=== PATIENT | female | born 1950 | race Caucasian/White ===

== ENCOUNTER → 2016-12-10 | Outpatient (CLI) | payer MEDICARE, OTHER ==
[~2016-12-10] MED LIST: AMIO200T PO; AMIO200T42 PO; ASPI-650 PO; CYAN50TA; FLUT16SP2 INH; FOLI-17 PO; FURO-92 PO; FURO40TA6 PO; LOSA25TA5 PO; LOSA50TA2 PO; LOSA50TA6 PO; MAGN30TA3; MAGN500C PO; METO-93 PO; METO25TA35 PO; METO25TA91 PO; NIAC50TA4; POTA10TA11 PO; POTA20TA14 PO; RIVA20TA PO; SPIR25TA3 PO; VALS40TA2 PO; VITA400C40 PO
== END | disposition home or self-care (01) ==
LOC: CFH 14:22
PROVIDERS: ATTEND Internal Medicine Cardiovascular Disease
DX: I08.1 Rheumatic disorders of both mitral and tricuspid valves (principal); I37.1 Nonrheumatic pulmonary valve insufficiency; I51.7 Cardiomegaly; I10 Essential (primary) hypertension; I48.91 Unspecified atrial fibrillation
CPT/HCPCS: 93306

== ENCOUNTER → 2017-02-18 | Outpatient (CLI) | payer MEDICARE, OTHER ==
[~2017-02-18] MED LIST changes: -VITA400C40 PO; +VITA400C43 PO
== END | disposition home or self-care (01) ==
LOC: CFH 14:41
PROVIDERS: ATTEND Internal Medicine Cardiovascular Disease
DX: M47.894 Other spondylosis, thoracic region (principal); I48.0 Paroxysmal atrial fibrillation; Z79.899 Other long term (current) drug therapy
CPT/HCPCS: 71020

== ENCOUNTER 2018-05-27 06:01 | Emergency (ER) | payer MEDICARE, OTHER ==
[~2018-05-27] VITALS: Ht 177.8 cm; Wt 102.6 kg
[~2018-05-27 06:01] MED LIST changes: +AMIO200T7 PO; +FURO-93 PO; -LOSA25TA5 PO; +LOSA25TA6 PO; -LOSA50TA6 PO; +LOSA50TA7 PO; -MAGN500C PO; +MAGN500C9 PO; -SPIR25TA3 PO; +SPIR25TA5 PO
[2018-05-27] MEDS ORDERED: LORA10TA72 PO (06:28)
[2018-05-27] MEDS ORDERED: ACET325T14 PO (06:28)
[2018-05-27] MEDS ORDERED: AMIO200T42 PO (06:28)
[2018-05-27] MEDS ORDERED: METO25TA2 PO (06:28)
[2018-05-27] MEDS ORDERED: VITA400C43 PO (06:28)
[2018-05-27] MEDS ORDERED: FURO40TA6 PO (06:28)
[2018-05-27] MEDS ORDERED: SODIUM CHLORIDE FLUSH 10ML SYR IVF ONE (06:30)
[2018-05-27 06:43] LABS: BASOPHILS # (AUTO) 0.03 x10^3/uL (0-0.1); BASOPHILS % (AUTO) 0 % (0-1); EOSINOPHILS # (AUTO) 0.11 x10^3/uL (0-0.4); EOSINOPHILS % (AUTO) 1 % (1-7); LYMPHOCYTES # (AUTO) 2.76 x10^3/uL (1-3.4); LYMPHOCYTES % (AUTO) 34 % (22-44); MD NO; MEAN CORPUSCULAR HEMOGLOBIN 30.5 pg (27.0-34.8); MEAN CORPUSCULAR VOLUME 89.7 fL (80-100); MEAN PLATELET VOLUME 10.1 fL (7.4-10.4); MONOCYTES # (AUTO) 0.61 x10^3/uL (0.2-0.8); MONOCYTES % (AUTO) 8 % (2-9); NEUTROPHILS # (AUTO) 4.52 x10^3/uL (1.8-6.8); NEUTROPHILS % (AUTO) 56 % (42-75); PLATELET COUNT 207 x10^3/uL (130-400); RED CELL DISTRIBUTION WIDTH 12.6 % (9.6-15.2)
[2018-05-27 06:56] LABS: ALANINE AMINOTRANSFERASE 47 U/L (12-78); ALBUMIN 3.6 g/dL (3.4-5.0); ANION GAP 9 mmol/L (5-15); CALCIUM 8.8 mg/dL (8.5-10.1); CHLORIDE 110 mmol/L (98-107); CREATININE 0.85 mg/dL (0.55-1.02)
[2018-05-27 06:58] LABS: ALKALINE PHOSPHATASE 133 U/L (45-117); BILIRUBIN,TOTAL 0.3 mg/dL (0.2-1.0); TOTAL PROTEIN 7.4 g/dL (6.4-8.2)
[2018-05-27] MEDS ORDERED: PROPOFOL 10 MG/ML, 20ML IVP ONE (07:30)
[2018-05-27] MEDS ORDERED: PROPOFOL 10 MG/ML, 20ML ONE (07:34)
[2018-05-27 08:38] VITALS: BP 115/64
== END 2018-05-27 08:49 | disposition home or self-care (01) ==
LOC: ED 08:35
DX: I48.0 Paroxysmal atrial fibrillation (principal); I11.0 Hypertensive heart disease with heart failure; I50.9 Heart failure, unspecified; E78.5 Hyperlipidemia, unspecified; I25.2 Old myocardial infarction
CPT/HCPCS: 36415; 71045; 80053; 85025; 92960; 93005; 99291

== ENCOUNTER 2018-06-03 05:35 | Emergency (ER) | payer MEDICARE, OTHER ==
[~2018-06-03] VITALS: Ht 177.8 cm; Wt 102.6 kg
[~2018-06-03 05:35] MED LIST changes: +ACET325T14 PO; +LORA10TA72 PO; +METO25TA2 PO
[2018-06-03] MEDS ORDERED: DILTIAZEM 5 MG/ML, 5ML ONE (06:10)
[2018-06-03] MEDS ORDERED: ASPIRIN 81 MG TABLET CHEW PO ONE (06:30)
[2018-06-03] MEDS ORDERED: DILTIAZEM 5 MG/ML, 5ML IVPush ONE ×2 (06:30→07:00)
[2018-06-03] MEDS ORDERED: SODIUM CHLORIDE FLUSH 10ML SYR IVF ONE (06:30)
[2018-06-03 06:59] LABS: ALBUMIN 3.7 g/dL (3.4-5.0); ANION GAP 6 mmol/L (5-15); CHLORIDE 110 mmol/L (98-107)
[2018-06-03 07:04] LABS: CREATININE 0.99 mg/dL (0.55-1.02); TROPONIN I < 0.015 ng/mL (0.000-0.045)
[2018-06-03] MEDS ORDERED: PROPOFOL 10 MG/ML, 20ML IVPush ONE (07:30)
[2018-06-03] MEDS ORDERED: PROPOFOL 10 MG/ML, 20ML ONE (07:41)
[2018-06-03 08:53] LABS: BASOPHILS # (AUTO) 0.02 x10^3/uL (0-0.1); BASOPHILS % (AUTO) 0 % (0-1); EOSINOPHILS # (AUTO) 0.08 x10^3/uL (0-0.4); EOSINOPHILS % (AUTO) 1 % (1-7); LYMPHOCYTES # (AUTO) 2.51 x10^3/uL (1-3.4); LYMPHOCYTES % (AUTO) 29 % (22-44); MD NO; MEAN CORPUSCULAR HEMOGLOBIN 29.6 pg (27.0-34.8); MEAN CORPUSCULAR HGB CONC 32.8 g/dL (32.4-35.8); MEAN CORPUSCULAR VOLUME 90.3 fL (80-100); MEAN PLATELET VOLUME 10.9 fL (7.4-10.4); MONOCYTES # (AUTO) 0.65 x10^3/uL (0.2-0.8); MONOCYTES % (AUTO) 8 % (2-9); NEUTROPHILS # (AUTO) 5.31 x10^3/uL (1.8-6.8); NEUTROPHILS % (AUTO) 62 % (42-75); PLATELET COUNT 236 x10^3/uL (130-400); RED BLOOD COUNT 4.84 x10^6/uL (3.82-5.3); RED CELL DISTRIBUTION WIDTH 12.7 % (9.6-15.2)
[2018-06-03 09:49] VITALS: BP 109/62
== END 2018-06-03 09:53 | disposition home or self-care (01) ==
LOC: ED 05:55
DX: I48.2 Chronic atrial fibrillation (principal); E78.5 Hyperlipidemia, unspecified; I11.0 Hypertensive heart disease with heart failure; I50.9 Heart failure, unspecified; I25.2 Old myocardial infarction
CPT/HCPCS: 36415; 71045; 80048; 82040; 83735; 83880; 84484; 85025; 93005; 96374; 99291

== ENCOUNTER → 2018-07-27 | Outpatient (CLI) | payer MEDICARE, OTHER ==
[~2018-07-27] MED LIST changes: +LOSA25TA25 PO; -LOSA25TA6 PO; +MAGN400T7 PO; +OMNIPAQUE 350 MG/ML, 150 ML BOTTLE ONE
== END | disposition home or self-care (01) ==
LOC: CFH 12:41
PROVIDERS: ATTEND Internal Medicine Cardiovascular Disease
DX: J98.11 Atelectasis (principal); I48.0 Paroxysmal atrial fibrillation
CPT/HCPCS: 71046; 75572; Q9967

== ENCOUNTER → 2018-07-27 | Outpatient (CLI) | payer MEDICARE, OTHER ==
[~2018-07-27] MED LIST changes: +FENTANYL PF 250 MCG/5ML ONE; +MIDAZOLAM 1 MG/ML, 2ML ONE; +MULT-6 PO; -OMNIPAQUE 350 MG/ML, 150 ML BOTTLE ONE
[2018-07-27 14:50] LABS: BASOPHILS # (AUTO) 0.02 x10^3/uL (0-0.1); BASOPHILS % (AUTO) 0 % (0-1); EOSINOPHILS # (AUTO) 0.07 x10^3/uL (0-0.4); EOSINOPHILS % (AUTO) 1 % (1-7); LYMPHOCYTES # (AUTO) 1.79 x10^3/uL (1-3.4); LYMPHOCYTES % (AUTO) 25 % (22-44); MD NO; MEAN CORPUSCULAR HEMOGLOBIN 29.5 pg (27.0-34.8); MEAN CORPUSCULAR HGB CONC 32.3 g/dL (32.4-35.8); MEAN CORPUSCULAR VOLUME 91.5 fL (80-100); MEAN PLATELET VOLUME 9.8 fL (7.4-10.4); MONOCYTES # (AUTO) 0.37 x10^3/uL (0.2-0.8); MONOCYTES % (AUTO) 5 % (2-9); NEUTROPHILS # (AUTO) 4.91 x10^3/uL (1.8-6.8); NEUTROPHILS % (AUTO) 69 % (42-75); PLATELET COUNT 213 x10^3/uL (130-400); RED BLOOD COUNT 4.56 x10^6/uL (3.82-5.3); RED CELL DISTRIBUTION WIDTH 13.5 % (9.6-15.2)
[2018-07-27 15:00] LABS: ANION GAP 6 mmol/L (5-15); CALCIUM 8.5 mg/dL (8.5-10.1); CHLORIDE 105 mmol/L (98-107); CREATININE 0.83 mg/dL (0.55-1.02)
== END | disposition home or self-care (01) ==
LOC: STAR 13:45
PROVIDERS: ATTEND Internal Medicine Cardiovascular Disease
DX: Z01.818 Encounter for other preprocedural examination (principal); I48.0 Paroxysmal atrial fibrillation
CPT/HCPCS: 36415; 80048; 85025

== ENCOUNTER 2018-08-01 08:38 | Day surgery (SDC) | payer MEDICARE, OTHER ==
[2018-07-27 14:15] VITALS: BP 134/72
[~2018-08-01] VITALS: Ht 179.1 cm; Wt 99.5 kg
[~2018-08-01 08:38] MED LIST changes: -FENTANYL PF 250 MCG/5ML ONE; -MIDAZOLAM 1 MG/ML, 2ML ONE; -MULT-6 PO
[2018-08-01] MEDS ORDERED: SODIUM CHLORIDE 0.9% 1,000 ML IV SCH (09:01)
[2018-08-01] MEDS ORDERED: SODIUM CHLORIDE 0.9% 1,000 ML IV ONE (09:30)
[2018-08-01] MEDS ORDERED: MULT-6 PO (09:48)
[2018-08-01] MEDS ORDERED: FENTANYL PF 100 MCG/2ML ONE (10:58)
[2018-08-01] MEDS ORDERED: ROCURONIUM 10MG/ML,5ML ONE (10:58)
[2018-08-01] MEDS ORDERED: MIDAZOLAM 1 MG/ML, 5ML ONE (10:58)
[2018-08-01] MEDS ORDERED: PROPOFOL 10 MG/ML, 20ML ONE (10:58)
[2018-08-01] MEDS ORDERED: SUCCINYLCHOLINE 20 MG/ML, 10ML ONE (10:58)
[2018-08-01] MEDS ORDERED: DEXAMETHASONE 4 MG/ML, 1ML ONE (10:58)
[2018-08-01] MEDS ORDERED: ONDANSETRON 2MG/ML, 2ML ONE (10:58)
[2018-08-01] MEDS ORDERED: hydrALAzine 20 MG/ML, 1ML IV PRN (12:00)
[2018-08-01] MEDS ORDERED: ONDANSETRON ODT 8 MG PO PRN (12:00)
[2018-08-01] MEDS ORDERED: ACETAMINOPHEN 325 MG TABLET PO PRN (12:00)
[2018-08-01] MEDS ORDERED: ALBUTEROL SULFATE 2.5 MG/3 ML NPPB PRN (12:00)
[2018-08-01] MEDS ORDERED: LABETALOL 5MG/ML, 20ML IV PRN (12:00)
[2018-08-01] MEDS ORDERED: MORPHINE SULFATE 4 MG/ML, 1ML IVPush PRN (12:00)
[2018-08-01] MEDS ORDERED: MIDAZOLAM 1 MG/ML, 2ML IV PRN (12:00)
[2018-08-01] MEDS ORDERED: EPHEDRINE 50 MG/ML, 1ML IVPush PRN (12:00)
[2018-08-01] MEDS ORDERED: PROMETHAZINE 12.5 MG SUPP PR PRN (12:00)
[2018-08-01] MEDS ORDERED: MEPERIDINE/PF 25MG/0.5ML IVPush PRN (12:00)
[2018-08-01] MEDS ORDERED: HYDROmorphone 2 MG/ML, 1ML IVPush PRN (12:00)
[2018-08-01] MEDS ORDERED: ONDANSETRON 2MG/ML, 2ML IV PRN (12:00)
[2018-08-01] MEDS ORDERED: FENTANYL PF 100 MCG/2ML IV PRN (12:00)
[2018-08-01] MEDS ORDERED: HALOPERIDOL 5 MG/ML IV PRN (12:00)
[2018-08-01] MEDS ORDERED: PROMETHAZINE 25 MG/ML, 1ML IV PRN (12:00)
[2018-08-01] MEDS ORDERED: DIAZEPAM 5 MG/ML, 2ML IVPush PRN (12:00)
[2018-08-01] MEDS ORDERED: OXYcodone 5 MG/5 ML ORAL.SOL UDC PO PRN (12:00)
== END 2018-08-01 13:41 | disposition home or self-care (01) ==
LOC: CACL 08:38
PROVIDERS: ATTEND Internal Medicine Cardiovascular Disease
DX: I48.91 Unspecified atrial fibrillation (principal); Z53.9 Procedure and treatment not carried out, unspecified reason; I34.0 Nonrheumatic mitral (valve) insufficiency; I36.1 Nonrheumatic tricuspid (valve) insufficiency; I10 Essential (primary) hypertension; E78.5 Hyperlipidemia, unspecified; E66.9 Obesity, unspecified; Z68.31 Body mass index [BMI] 31.0-31.9, adult; Z88.8 Allergy status to other drugs, medicaments and biological substances; Z91.040 Latex allergy status
CPT/HCPCS: 93312; 93321; 93325; 93656; J0330; J1100; J2250; J2405; J2704; J3010

== ENCOUNTER 2019-01-09 16:39 | Inpatient (IN) | payer MEDICARE, OTHER ==
[~2019-01-09] VITALS: Ht 177.8 cm; Wt 102.1 kg
[~2019-01-09 16:39] MED LIST changes: +LOSA50TA14 PO; -LOSA50TA7 PO; +MULT-6 PO
[2019-01-09] MEDS ORDERED: SODIUM CHLORIDE FLUSH 10ML SYR IVF ONE (17:00)
--- NOTE | 2019-01-09 17:18 | NUR ---
PT REPORTS HX OF AFIB, CHF. PT STATES AFIB STARTED 2 DAYS AGO AND HAS NOT GONE AWAY. ALL MONITORS ATTACHED. CALL LIGHT WITHIN REACH. WILL MEDICATE PER EMAR
[2019-01-09] MEDS ORDERED: DILTIAZEM 5 MG/ML, 5ML ONE (17:20)
[2019-01-09] MEDS ORDERED: DILTIAZEM 5 MG/ML, 5ML IVPush ONE (17:30)
[2019-01-09 17:45] LABS: BASOPHILS # (AUTO) 0.03 x10^3/uL (0-0.1); BASOPHILS % (AUTO) 0 % (0-1); EOSINOPHILS # (AUTO) 0.08 x10^3/uL (0-0.4); EOSINOPHILS % (AUTO) 1 % (1-7); LYMPHOCYTES # (AUTO) 3.02 x10^3/uL (1-3.4); LYMPHOCYTES % (AUTO) 27 % (22-44); MD NO; MEAN CORPUSCULAR HEMOGLOBIN 30.1 pg (27.0-34.8); MEAN CORPUSCULAR HGB CONC 32.6 g/dL (32.4-35.8); MEAN CORPUSCULAR VOLUME 92.2 fL (80-100); MONOCYTES # (AUTO) 0.59 x10^3/uL (0.2-0.8); MONOCYTES % (AUTO) 5 % (2-9); NEUTROPHILS # (AUTO) 7.38 x10^3/uL (1.8-6.8); NEUTROPHILS % (AUTO) 67 % (42-75); PLATELET COUNT 256 x10^3/uL (130-400); RED CELL DISTRIBUTION WIDTH 13.6 % (9.6-15.2)
[2019-01-09 17:54] LABS: ANION GAP 5 mmol/L (5-15); CALCIUM 9.1 mg/dL (8.5-10.1); CHLORIDE 108 mmol/L (98-107)
--- NOTE | 2019-01-09 17:55 | NUR ---
IV PLACED, LABS DRAWN AND PT MEDICATED PER SEP FOR AFIB. HR ORIGINALLY 140S-160S, AFTER MEDS PT HR DECREASED TO 100-120S. PT STILL IN AFIB AT THIS TIME. OTHER VSS. PT REPORTING A PINCHING SENSATION TO LEFT RIB AREA JUST UNDER BREAST PRESENTING TODAY. PT REPORTING HX OF AFIB USUALLY TAKING AMIODORONE, WAS INSTRUCTED TO STOP APPROX 2 MONTHS AGO IN PREP FOR OBLASION. RECENT DX OF SMALL CLOT FOUND, CURRENTLY TAKING COUMADIN. PT GIVEN BLANKET FOR COMFORT. CALL LIGHT WITHIN REACH. AWAITING TEST RESULTS AND FURTHER ORDERS AT THIS TIME
[2019-01-09 18:02] LABS: ALANINE AMINOTRANSFERASE 34 U/L (12-78); ALKALINE PHOSPHATASE 123 U/L (45-117); BILIRUBIN,TOTAL 0.3 mg/dL (0.2-1.0); CREATININE 1.04 mg/dL (0.55-1.02); FREE T4 (FREE THYROXINE) 1.17 ng/dL (0.76-1.46); TOTAL PROTEIN 7.9 g/dL (6.4-8.2); TROPONIN I < 0.015 ng/mL (0.000-0.045)
--- NOTE | 2019-01-09 18:13 | NUR ---
PT UP TO RESTROOM WITH DAUGHTER. STILL IN AFIB AT THIS TIME, ASYMPTOMATIC
--- NOTE | 2019-01-09 18:25 | NUR ---
LAB AT BEDSIDE FOR REDRAW
--- NOTE | 2019-01-09 19:51 | NUR ---
report given to nadia monge
[2019-01-09] MEDS ORDERED: WARF1TAB74 PO (20:00)
[2019-01-09 20:16] VITALS: BP 124/85
[2019-01-09 20:19] LABS: INTERNATIONAL NORMALIZED RATIO 6.62 (0.93-1.1); PROTHROMBIN TIME 64.6 Seconds (9.6-11.5)
[2019-01-09] MEDS ORDERED: METOPROLOL SUCCINATE 25 MG TAB.ER.24H PO SCH (21:30)
[2019-01-09 21:42] VITALS: BP 143/85
[2019-01-09] MEDS ORDERED: ACETAMINOPHEN 325 MG TABLET PO ONE (22:00)
[2019-01-09] MEDS ORDERED: DILTIAZEM 5 MG/ML, 5ML IVPush PRN (22:00)
[2019-01-09] MEDS ORDERED: DOCUSATE 100 MG CAPSULE PO PRN (22:00)
[2019-01-09] MEDS ORDERED: TEMAZEPAM 15 MG CAPSULE PO PRN (22:00)
[2019-01-09 23:36] VITALS: BP 124/75
[2019-01-09 23:46] LABS: TROPONIN I < 0.015 ng/mL (0.000-0.045)
[2019-01-10 01:14] VITALS: BP 115/76
[2019-01-10 05:31] LABS: BASOPHILS # (AUTO) 0.02 x10^3/uL (0-0.1); BASOPHILS % (AUTO) 0 % (0-1); EOSINOPHILS # (AUTO) 0.12 x10^3/uL (0-0.4); EOSINOPHILS % (AUTO) 2 % (1-7); LYMPHOCYTES # (AUTO) 2.94 x10^3/uL (1-3.4); LYMPHOCYTES % (AUTO) 37 % (22-44); MD NO; MEAN CORPUSCULAR HEMOGLOBIN 29.5 pg (27.0-34.8); MEAN CORPUSCULAR HGB CONC 32.8 g/dL (32.4-35.8); MEAN PLATELET VOLUME 9.7 fL (7.4-10.4); MONOCYTES # (AUTO) 0.57 x10^3/uL (0.2-0.8); MONOCYTES % (AUTO) 7 % (2-9); NEUTROPHILS % (AUTO) 54 % (42-75); PLATELET COUNT 199 x10^3/uL (130-400); RED CELL DISTRIBUTION WIDTH 13.4 % (9.6-15.2)
[2019-01-10 05:43] LABS: ANION GAP 9 mmol/L (5-15); CALCIUM 8.7 mg/dL (8.5-10.1); CHLORIDE 110 mmol/L (98-107)
[2019-01-10 05:51] LABS: CREATININE 0.89 mg/dL (0.55-1.02); TROPONIN I < 0.015 ng/mL (0.000-0.045)
[2019-01-10 08:39] VITALS: BP 129/81
[2019-01-10] MEDS ORDERED: SPIRONOLACTONE 25 MG TABLET PO SCH (09:00)
[2019-01-10] MEDS: METOPROLOL SUCCINATE 50 MG TAB.ER.24H PO SCH ×2 (09:20→21:44)
[2019-01-10] MEDS: LOSARTAN 25MG TABLET PO SCH (09:20)
[2019-01-10] MEDS: MAGNESIUM OXIDE 400 MG TABLET PO SCH (09:20)
[2019-01-10] MEDS ORDERED: POTASSIUM CHLORIDE 20 MEQ TAB.ER.PRT ONE (09:22)
[2019-01-10 13:16] VITALS: BP 138/93
[2019-01-10] MEDS ORDERED: PROPOFOL 10 MG/ML, 20ML ONE (16:01)
[2019-01-10] MEDS: DIGOXIN 0.25 MG/ML, 2ML IVPush SCH ×2 (16:36→21:43)
[2019-01-10 17:41] VITALS: BP 128/71
[2019-01-10 19:48] VITALS: BP 127/84
[2019-01-11] MEDS ORDERED: ACETAMINOPHEN 325 MG TABLET ONE (00:17)
[2019-01-11] MEDS ORDERED: ACETAMINOPHEN 325 MG TABLET PO PRN (00:30)
[2019-01-11 00:59] VITALS: BP 122/79
[2019-01-11] MEDS: DIGOXIN 0.25 MG/ML, 2ML IVPush SCH (04:12)
[2019-01-11 05:17] LABS: ALANINE AMINOTRANSFERASE 29 U/L (12-78); ALBUMIN 3.3 g/dL (3.4-5.0); ANION GAP 5 mmol/L (5-15); CALCIUM 8.6 mg/dL (8.5-10.1); CHLORIDE 110 mmol/L (98-107); CREATININE 0.91 mg/dL (0.55-1.02)
[2019-01-11 05:19] LABS: ALKALINE PHOSPHATASE 92 U/L (45-117); BILIRUBIN,TOTAL 0.7 mg/dL (0.2-1.0); TOTAL PROTEIN 6.3 g/dL (6.4-8.2)
[2019-01-11 05:28] LABS: INTERNATIONAL NORMALIZED RATIO 3.19 (0.93-1.1)
[2019-01-11 07:15] VITALS: BP 112/77
[2019-01-11] MEDS: MAGNESIUM OXIDE 400 MG TABLET PO SCH (09:00)
[2019-01-11] MEDS: METOPROLOL SUCCINATE 50 MG TAB.ER.24H PO SCH ×2 (10:14→22:27)
[2019-01-11] MEDS: POTASSIUM CHLORIDE 20 MEQ TAB.ER.PRT PO SCH (10:14)
[2019-01-11] MEDS: LOSARTAN 25MG TABLET PO SCH (10:15)
[2019-01-11 13:29] VITALS: BP 105/74
[2019-01-11] MEDS: DIGOXIN 0.25 MG TABLET PO SCH (13:38)
[2019-01-11 14:47] VITALS: BP 126/77
[2019-01-11] MEDS: DILTIAZEM 30 MG TABLET PO SCH ×2 (14:50→21:12)
[2019-01-11] MEDS ORDERED: WARFARIN 1 MG TABLET PO-COUM ONE (18:00)
[2019-01-11 20:00] VITALS: BP 124/84
[2019-01-11] MEDS ORDERED: TRAZODONE 50MG TABLET PO PRN (21:00)
[2019-01-11 22:26] VITALS: BP 108/75
[2019-01-12] VITALS (8 sets, daily range): BP systolic 94–120; BP diastolic 66–78
[2019-01-12] MEDS: DILTIAZEM 30 MG TABLET PO SCH ×2 (03:12→09:41)
[2019-01-12 07:43] LABS: INTERNATIONAL NORMALIZED RATIO 1.74 (0.93-1.1); PROTHROMBIN TIME 17.9 Seconds (9.6-11.5)
[2019-01-12] MEDS: LOSARTAN 25MG TABLET PO SCH (09:00)
[2019-01-12] MEDS: DIGOXIN 0.25 MG TABLET PO SCH (09:40)
[2019-01-12] MEDS: METOPROLOL SUCCINATE 50 MG TAB.ER.24H PO SCH ×2 (09:41→20:00)
[2019-01-12] MEDS: MAGNESIUM OXIDE 400 MG TABLET PO SCH (09:49)
[2019-01-12] MEDS: SODIUM CHLORIDE 0.9% 1,000 ML IV SCH ×2 (12:48→17:17)
[2019-01-12] MEDS ORDERED: MIDAZOLAM 1 MG/ML, 5ML ONE (15:02)
[2019-01-12] MEDS ORDERED: FENTANYL PF 100 MCG/2ML ONE (15:02)
[2019-01-12] MEDS ORDERED: VERAPAMIL 2.5 MG/ML, 2ML ONE (15:03)
[2019-01-12] MEDS ORDERED: LIDOCAINE 1%, 20ML ONE (15:03)
[2019-01-12] MEDS ORDERED: HEPARIN 1,000 UNITS/ML, 10ML ONE (15:03)
[2019-01-12] MEDS ORDERED: SODIUM CHLORIDE 0.9% 1,000 ML IV SCH (15:43)
[2019-01-12] MEDS ORDERED: WARFARIN 5 MG TABLET PO-COUM SCH (18:00)
[2019-01-12] MEDS: ENOXAPARIN 100 MG/ML SQ SCH (20:00)
[2019-01-12] MEDS: DILTIAZEM 60 MG TABLET PO SCH (21:34)
[2019-01-13 01:04] VITALS: BP 117/89
[2019-01-13] MEDS: DILTIAZEM 60 MG TABLET PO SCH ×4 (03:00→21:40)
[2019-01-13 03:05] VITALS: BP 94/66
[2019-01-13 07:01] LABS: INTERNATIONAL NORMALIZED RATIO 1.4 (0.93-1.1); PROTHROMBIN TIME 14.5 Seconds (9.6-11.5)
[2019-01-13 08:00] VITALS: BP 112/74
[2019-01-13] MEDS: POTASSIUM CHLORIDE 20 MEQ TAB.ER.PRT PO SCH (10:03)
[2019-01-13] MEDS: DIGOXIN 0.25 MG TABLET PO SCH (10:04)
[2019-01-13] MEDS: METOPROLOL SUCCINATE 50 MG TAB.ER.24H PO SCH ×2 (10:04→20:13)
[2019-01-13] MEDS: LOSARTAN 25MG TABLET PO SCH (10:05)
[2019-01-13] MEDS: MAGNESIUM OXIDE 400 MG TABLET PO SCH (10:05)
[2019-01-13] MEDS: ENOXAPARIN 100 MG/ML SQ SCH ×2 (10:07→20:13)
[2019-01-13 14:05] VITALS: BP 107/71
[2019-01-13] MEDS ORDERED: WARFARIN 7.5 MG TABLET PO-COUM SCH (18:00)
[2019-01-13 19:41] VITALS: BP 106/66
[2019-01-13 21:39] VITALS: BP 113/72
[2019-01-14 02:25] VITALS: BP 111/71
[2019-01-14] MEDS: DILTIAZEM 60 MG TABLET PO SCH ×2 (02:28→10:33)
[2019-01-14 05:32] LABS: INTERNATIONAL NORMALIZED RATIO 1.56 (0.93-1.1); PROTHROMBIN TIME 16.1 Seconds (9.6-11.5)
[2019-01-14 07:15] VITALS: BP 107/57
[2019-01-14] MEDS: LOSARTAN 25MG TABLET PO SCH (10:33)
[2019-01-14] MEDS: METOPROLOL SUCCINATE 50 MG TAB.ER.24H PO SCH (10:33)
[2019-01-14] MEDS: POTASSIUM CHLORIDE 20 MEQ TAB.ER.PRT PO SCH (10:33)
[2019-01-14] MEDS: MAGNESIUM OXIDE 400 MG TABLET PO SCH (10:33)
[2019-01-14] MEDS: ENOXAPARIN 100 MG/ML SQ SCH (10:34)
[2019-01-14] MEDS: DIGOXIN 0.25 MG TABLET PO SCH (10:34)
[2019-01-14 10:38] VITALS: BP 120/78
[2019-01-14] MEDS ORDERED: DILT120T3 PO (11:38)
[2019-01-14] MEDS ORDERED: DIGO250T PO (11:38)
[2019-01-14] MEDS ORDERED: ENOX100S4 SQ (11:38)
[2019-01-14] MEDS ORDERED: METO-93 PO (11:38)
[2019-01-14] MEDS ORDERED: WARFARIN 10 MG TABLET PO-COUM ONE (18:00)
== END 2019-01-14 13:55 | disposition home or self-care (01) | DRG 286 ==
LOC: ED 19:13 → EDIP 19:15 → 5SO 20:06 → DCLOUNGE 01-14 13:20
PROVIDERS: ADMIT Family Medicine; ATTEND Family Medicine
PROC: 4A023N7 Measurement of Cardiac Sampling and Pressure, Left Heart, Percutaneous Approach (ICD-10-PCS; principal; 2019-01-12)
PROC: B2151ZZ Fluoroscopy of Left Heart using Low Osmolar Contrast (ICD-10-PCS; 2019-01-12)
PROC: B2111ZZ Fluoroscopy of Multiple Coronary Arteries using Low Osmolar Contrast (ICD-10-PCS; 2019-01-12)
DX: I48.0 Paroxysmal atrial fibrillation (principal); I50.31 Acute diastolic (congestive) heart failure; N17.9 Acute kidney failure, unspecified; D68.69 Other thrombophilia; I11.0 Hypertensive heart disease with heart failure; E66.9 Obesity, unspecified; E78.5 Hyperlipidemia, unspecified; I08.1 Rheumatic disorders of both mitral and tricuspid valves; I25.10 Atherosclerotic heart disease of native coronary artery without angina pectoris; I42.9 Cardiomyopathy, unspecified; Z79.01 Long term (current) use of anticoagulants; I44.7 Left bundle-branch block, unspecified; Z79.899 Other long term (current) drug therapy; Z68.32 Body mass index [BMI] 32.0-32.9, adult; Z87.891 Personal history of nicotine dependence
CPT/HCPCS: 36415; 71045; 80048; 80053; 80162; 83735; 84439; 84443; 84484; 85025; 85610; 85730; 93005; 93306; 93312; 93321; 93325; 93458; 99156; 99291; C1769; G0378; J1644; J1650; J2250; J2704; J3010; J1160; J7030; Q9967

== ENCOUNTER 2019-01-31 04:23 | Inpatient (IN) | payer MEDICARE ==
[2019-01-30 14:28] LABS: BASOPHILS # (AUTO) 0.03 x10^3/uL (0-0.1); BASOPHILS % (AUTO) 0 % (0-1); EOSINOPHILS # (AUTO) 0.14 x10^3/uL (0-0.4); EOSINOPHILS % (AUTO) 2 % (1-7); LYMPHOCYTES # (AUTO) 1.82 x10^3/uL (1-3.4); LYMPHOCYTES % (AUTO) 22 % (22-44); MD NO; MEAN CORPUSCULAR HEMOGLOBIN 29.9 pg (27.0-34.8); MEAN CORPUSCULAR HGB CONC 32.3 g/dL (32.4-35.8); MEAN CORPUSCULAR VOLUME 92.5 fL (80-100); MEAN PLATELET VOLUME 9.7 fL (7.4-10.4); MONOCYTES # (AUTO) 0.48 x10^3/uL (0.2-0.8); MONOCYTES % (AUTO) 6 % (2-9); NEUTROPHILS # (AUTO) 5.65 x10^3/uL (1.8-6.8); NEUTROPHILS % (AUTO) 70 % (42-75); PLATELET COUNT 212 x10^3/uL (130-400); RED BLOOD COUNT 4.38 x10^6/uL (3.82-5.3)
[2019-01-30 14:34] LABS: ALANINE AMINOTRANSFERASE 54 U/L (12-78); ALBUMIN 3.8 g/dL (3.4-5.0); ANION GAP 7 mmol/L (5-15); CALCIUM 9.1 mg/dL (8.5-10.1); CHLORIDE 110 mmol/L (98-107); CREATININE 0.88 mg/dL (0.55-1.02); INTERNATIONAL NORMALIZED RATIO 1.16 (0.93-1.1); PROTHROMBIN TIME 12.1 Seconds (9.6-11.5)
[2019-01-30 14:37] LABS: ALKALINE PHOSPHATASE 139 U/L (45-117); BILIRUBIN,TOTAL 0.6 mg/dL (0.2-1.0); TOTAL PROTEIN 7.1 g/dL (6.4-8.2)
[2019-01-30 14:37] LABS: MICROSCOPIC INDICATED
[2019-01-30 14:49] LABS: HEMOGLOBIN A1C 5.7 % (4.2-6.3)
[~2019-01-31] VITALS: Ht 177.8 cm; Wt 109.0 kg
[~2019-01-31 04:23] MED LIST changes: +DIGO250T PO; +DILT120T3 PO; +ENOX100S4 SQ; +WARF1TAB74 PO
[2019-01-31 04:30] VITALS: BP_SYST 118; BP_SYST 135; BP_DIAS 71; BP_DIAS 85
[2019-01-31] MEDS ORDERED: CHLORHEXIDINE 15 ML UDC MM SCH (05:00)
[2019-01-31] MEDS ORDERED: DO NOT GIVE MC SCH (05:00)
[2019-01-31] MEDS ORDERED: INSULIN LISPRO 100 UNITS/ML, PEN SQ-INSULIN SCH ×2 (05:00→11:00)
[2019-01-31] MEDS: SODIUM CHLORIDE FLUSH 10ML SYR IVF SCH ×4 (05:49→21:07)
[2019-01-31] MEDS ORDERED: HEPARIN 1,000 UNITS/ML, 30ML ONE ×2 (06:51→11:29)
[2019-01-31] MEDS ORDERED: FENTANYL PF 250 MCG/5ML ONE ×4 (06:58→06:59)
[2019-01-31] MEDS ORDERED: MIDAZOLAM 10MG/2 ML ONE (06:58)
[2019-01-31 07:28] VITALS: BP 113/71
[2019-01-31] MEDS ORDERED: CEFUROXIME 1.5 GM in SODIUM CHLORIDE 0.9% 50 ML IVPB PRN (07:30)
[2019-01-31] MEDS ORDERED: MANNITOL PMX 20% 500 ML IVPB PRN (07:30)
[2019-01-31] MEDS ORDERED: DEXMEDETOMIDINE 200 MCG in SODIUM CHLORIDE 0.9% 48 ML IV SCH (07:30)
[2019-01-31] MEDS ORDERED: REGULAR INSULIN 62.5 UNITS in SODIUM CHLORIDE 0.9% 249.375 ML IV PRN ×2 (07:30→07:54)
[2019-01-31] MEDS ORDERED: POTASSIUM CHLORIDE 80 MEQ, SODIUM BICARBONATE 8.4% 10 MEQ, MAGNESIUM SULFATE 0.5 GM, LI... IV PRN (07:30)
[2019-01-31] MEDS ORDERED: VANCOMYCIN 1,600 MG in SODIUM CHLORIDE 0.9% 250 ML IV PRN (07:30)
[2019-01-31] MEDS ORDERED: EPINEPHRINE 2 MG in SODIUM CHLORIDE 0.9% 248 ML IV SCH (07:30)
[2019-01-31] MEDS ORDERED: PHENYLEPHRINE 10 MG in SODIUM CHLORIDE 0.9% 249 ML IV PRN ×2 (07:30→07:54)
[2019-01-31] MEDS ORDERED: ALBUMIN HUMAN 5% 500 ML IV PRN (07:30)
[2019-01-31] MEDS ORDERED: DEXMEDETOMIDINE 200 MCG in SODIUM CHLORIDE 0.9% 48 ML IV PRN (07:54)
[2019-01-31] MEDS ORDERED: VASOPRESSIN 50 UNIT in SODIUM CHLORIDE 0.9% 247.5 ML IV PRN (07:54)
[2019-01-31] MEDS ORDERED: DOBUTAMINE 250 MG in SODIUM CHLORIDE 0.9% 230 ML IV PRN (07:54)
[2019-01-31] MEDS ORDERED: SODIUM CHLORIDE 0.9% 1,000 ML IV PRN (07:54)
[2019-01-31] MEDS ORDERED: NITROGLYCERIN/D5W PMX 250 ML IV PRN (07:54)
[2019-01-31] MEDS ORDERED: MIDAZOLAM 1 MG/ML, 5ML IVPush PRN (08:00)
[2019-01-31] MEDS ORDERED: DEXTROSE 50%, 50ML SYRINGE IVPush PRN (08:00)
[2019-01-31] MEDS ORDERED: GLUCAGON 1 MG IM PRN (08:00)
[2019-01-31] MEDS ORDERED: BISACODYL 10 MG SUPP PR PRN (08:00)
[2019-01-31] MEDS ORDERED: INSULIN REGULAR 100 UNITS/ML, 3ML VIAL IVPush PRN (08:00)
[2019-01-31] MEDS ORDERED: ACETAMINOPHEN 650 MG SUPP PR PRN (08:00)
[2019-01-31] MEDS ORDERED: EPINEPHRINE 2 MG in SODIUM CHLORIDE 0.9% 248 ML IV PRN (08:00)
[2019-01-31] MEDS ORDERED: ACETAMINOPHEN 325 MG TABLET PO PRN (08:00)
[2019-01-31] MEDS ORDERED: FENTANYL PF 100 MCG/2ML IVPush PRN (08:00)
[2019-01-31] MEDS ORDERED: BISACODYL 5 MG EC TABLET PO PRN (08:00)
[2019-01-31] MEDS: KSCALE TO 4.5 IV SCH ×2 (08:00→18:00)
[2019-01-31] MEDS ORDERED: DEXTROSE 4 GM TAB.CHEW PO PRN (08:00)
[2019-01-31] MEDS: MUPIROCIN OINT 2%, 22GM NAS SCH ×2 (09:00→21:08)
[2019-01-31] MEDS: DOCUSATE 100 MG CAPSULE PO SCH ×2 (09:00→21:06)
[2019-01-31] MEDS ORDERED: MUPIROCIN OINT 2%, 22GM TP SCH (09:00)
[2019-01-31] MEDS ORDERED: AMINOCAPROIC ACID 250 MG/ML, 20ML ONE ×2 (09:17)
[2019-01-31] MEDS ORDERED: ROCURONIUM 10MG/ML,5ML ONE ×2 (09:17)
[2019-01-31] MEDS ORDERED: PROPOFOL 10 MG/ML, 20ML ONE (09:17)
[2019-01-31] MEDS ORDERED: PROTAMINE SULFATE 10 MG/ML, 25ML ONE ×2 (09:17)
[2019-01-31] MEDS ORDERED: AMIODARONE 50 MG/ML, 3ML ONE (10:10)
[2019-01-31] MEDS ORDERED: MAGNESIUM SULFATE PMX 2GM/50ML 50 ML ONE (10:11)
[2019-01-31] MEDS ORDERED: CALCIUM CHLORIDE 10%, 10ML SYR ONE (10:31)
[2019-01-31] MEDS ORDERED: ALBUMIN HUMAN 25% 50 ML ONE (11:29)
[2019-01-31] MEDS ORDERED: LIDOCAINE 2% 100MG/5ML SYRINGE ONE (11:29)
[2019-01-31] MEDS ORDERED: SODIUM BICARBONATE 1 MEQ/ML, 50ML VIAL ONE (11:29)
[2019-01-31 11:37] LABS: GLUCOSE BY BLOOD GAS ANALYZER 144 mg/dL (70-110); HEMOGLOBIN BY BLOOD GAS ANALYZ 11.9 g/dL (14.0-18.0); POTASSIUM BY BLOOD GAS ANALYZR 3.9 mmol/L (3.6-5.5)
[2019-01-31 11:38] LABS: FIO2 100 %
[2019-01-31] MEDS: MAGNESIUM SULFATE 1 GM in SODIUM CHLORIDE 0.9% 50 ML IVPB SCH (11:59)
[2019-01-31] MEDS: LACTATED RINGERS 1,000 ML IV PRN ×3 (11:59→13:33)
[2019-01-31 12:24] LABS: INTERNATIONAL NORMALIZED RATIO 1.28 (0.93-1.1); PROTHROMBIN TIME 13.3 Seconds (9.6-11.5)
[2019-01-31] MEDS: SODIUM BICARB 8.4%, 50ML SYRINGE IV PRN ×2 (12:25→13:47)
[2019-01-31] MEDS ORDERED: POTASSIUM CHLORIDE PMX 100 ML IV ONE (13:00)
[2019-01-31] MEDS ORDERED: ALBUMIN HUMAN 5% 500 ML IV ONE (15:30)
[2019-01-31] MEDS: OXYcodone IR 5MG TABLET PO PRN ×2 (16:36→22:29)
[2019-01-31] MEDS ORDERED: EPINEPHRINE 1 MG/ML, 1ML ONE (17:46)
[2019-01-31] MEDS ORDERED: POTASSIUM CHLORIDE 30 MEQ in SODIUM CHLORIDE 0.9% 100 ML IV ONE (19:00)
[2019-01-31] MEDS: HYDROcodone/APAP 10/325 MG TABLET PO PRN (19:45)
[2019-01-31] MEDS: CEFUROXIME 1.5 GM in SODIUM CHLORIDE 0.9% 50 ML IVPB SCH (20:20)
[2019-01-31] MEDS: VANCOMYCIN 1,600 MG in SODIUM CHLORIDE 0.9% 250 ML IVPB SCH (21:02)
[2019-01-31] MEDS: ONDANSETRON 2MG/ML, 2ML IVPush PRN (22:31)
[2019-02-01] MEDS: KSCALE TO 4.5 IV SCH ×2 (00:49→05:49)
[2019-02-01] MEDS: HYDROcodone/APAP 10/325 MG TABLET PO PRN ×2 (00:58→05:52)
[2019-02-01] MEDS ORDERED: FUROSEMIDE 20 MG/2 ML IV ONE (02:30)
[2019-02-01] MEDS: OXYcodone IR 5MG TABLET PO PRN (03:29)
[2019-02-01 05:17] LABS: MEAN CORPUSCULAR HEMOGLOBIN 29.7 pg (27.0-34.8); MEAN CORPUSCULAR HGB CONC 32.3 g/dL (32.4-35.8); MEAN CORPUSCULAR VOLUME 91.9 fL (80-100); MEAN PLATELET VOLUME 9.6 fL (7.4-10.4); PLATELET COUNT 132 x10^3/uL (130-400); RED BLOOD COUNT 3.87 x10^6/uL (3.82-5.3); RED CELL DISTRIBUTION WIDTH 14.3 % (9.6-15.2)
[2019-02-01 05:18] LABS: ALBUMIN 3.4 g/dL (3.4-5.0); ANION GAP 7 mmol/L (5-15); CALCIUM 7.8 mg/dL (8.5-10.1); CHLORIDE 114 mmol/L (98-107); CREATININE 0.82 mg/dL (0.55-1.02)
[2019-02-01 05:49] LABS: INTERNATIONAL NORMALIZED RATIO 1.19 (0.93-1.1); PROTHROMBIN TIME 12.4 Seconds (9.6-11.5)
[2019-02-01 05:53] LABS: BASOPHILS % (AUTO) 0 % (0-1); EOSINOPHILS % (AUTO) 0 % (1-7); LYMPHOCYTES % (AUTO) 6 % (22-44); MD SCAN; MONOCYTES # (AUTO) 0.94 x10^3/uL (0.2-0.8); MONOCYTES % (AUTO) 5 % (2-9); NEUTROPHILS # (AUTO) 15.37 x10^3/uL (1.8-6.8); NEUTROPHILS % (AUTO) 89 % (42-75)
[2019-02-01] MEDS ORDERED: KETOROLAC 30 MG/1 ML IVPush SCH ×2 (06:30)
[2019-02-01] MEDS ORDERED: LORazepam 1MG TABLET PO PRN (06:30)
[2019-02-01] MEDS: KETOROLAC 30 MG/1 ML IVPush SCH ×3 (06:31→18:03)
[2019-02-01] MEDS: CEFUROXIME 1.5 GM in SODIUM CHLORIDE 0.9% 50 ML IVPB SCH (08:38)
[2019-02-01] MEDS: CHLORHEXIDINE 15 ML UDC MM SCH ×2 (08:53→20:19)
[2019-02-01] MEDS: FUROSEMIDE 40 MG/4 ML IV SCH (08:53)
[2019-02-01] MEDS: POTASSIUM CHLORIDE 20 MEQ TAB.ER.PRT PO SCH ×2 (08:54→18:03)
[2019-02-01] MEDS: DOCUSATE 100 MG CAPSULE PO SCH ×2 (08:54→20:19)
[2019-02-01] MEDS: ASPIRIN 81 MG TABLET EC PO SCH (08:54)
[2019-02-01] MEDS: MUPIROCIN OINT 2%, 22GM NAS SCH ×2 (08:57→20:19)
[2019-02-01] MEDS ORDERED: WARFARIN BIOPROSTHETIC VALVE PROTOCOL 2-3 XX SCH (09:00)
[2019-02-01] MEDS ORDERED: LOSARTAN 25MG TABLET PO SCH (09:00)
[2019-02-01] MEDS: SODIUM CHLORIDE FLUSH 10ML SYR IVF SCH ×4 (09:00→20:13)
[2019-02-01] MEDS: VANCOMYCIN 1,600 MG in SODIUM CHLORIDE 0.9% 250 ML IVPB SCH (09:18)
[2019-02-01] MEDS: MAGNESIUM SULFATE 1 GM in SODIUM CHLORIDE 0.9% 50 ML IVPB SCH (12:11)
[2019-02-01] MEDS ORDERED: WARFARIN 5 MG TABLET PO-COUM ONE (18:00)
[2019-02-02] MEDS: KETOROLAC 30 MG/1 ML IVPush SCH ×5 (00:04→23:36)
[2019-02-02] MEDS: OXYcodone IR 5MG TABLET PO PRN ×2 (02:08→05:04)
[2019-02-02 04:51] LABS: MEAN CORPUSCULAR HEMOGLOBIN 30.2 pg (27.0-34.8); MEAN CORPUSCULAR HGB CONC 32.5 g/dL (32.4-35.8); MEAN CORPUSCULAR VOLUME 93.1 fL (80-100); MEAN PLATELET VOLUME 10.3 fL (7.4-10.4); PLATELET COUNT 113 x10^3/uL (130-400); RED BLOOD COUNT 3.45 x10^6/uL (3.82-5.3); RED CELL DISTRIBUTION WIDTH 14.1 % (9.6-15.2)
[2019-02-02 04:59] LABS: INTERNATIONAL NORMALIZED RATIO 1.12 (0.93-1.1); PROTHROMBIN TIME 11.7 Seconds (9.6-11.5)
[2019-02-02 05:00] LABS: ANION GAP 4 mmol/L (5-15); CALCIUM 8.2 mg/dL (8.5-10.1); CHLORIDE 110 mmol/L (98-107); CREATININE 0.68 mg/dL (0.55-1.02)
[2019-02-02 05:43] LABS: BASOPHILS # (AUTO) 0.02 x10^3/uL (0-0.1); BASOPHILS % (AUTO) 0 % (0-1); EOSINOPHILS # (AUTO) 0.02 x10^3/uL (0-0.4); EOSINOPHILS % (AUTO) 0 % (1-7); LYMPHOCYTES % (AUTO) 9 % (22-44); MD SCAN; MONOCYTES # (AUTO) 0.85 x10^3/uL (0.2-0.8); MONOCYTES % (AUTO) 6 % (2-9); NEUTROPHILS # (AUTO) 12.96 x10^3/uL (1.8-6.8); NEUTROPHILS % (AUTO) 85 % (42-75)
[2019-02-02] MEDS: ASPIRIN 81 MG TABLET EC PO SCH (09:17)
[2019-02-02] MEDS: MUPIROCIN OINT 2%, 22GM NAS SCH ×2 (09:17→20:13)
[2019-02-02] MEDS: CHLORHEXIDINE 15 ML UDC MM SCH ×2 (09:17→20:13)
[2019-02-02] MEDS: POTASSIUM CHLORIDE 20 MEQ TAB.ER.PRT PO SCH ×2 (09:17→18:08)
[2019-02-02] MEDS: FUROSEMIDE 40 MG/4 ML IV SCH (09:17)
[2019-02-02] MEDS: DOCUSATE 100 MG CAPSULE PO SCH ×2 (09:17→20:12)
[2019-02-02] MEDS: SODIUM CHLORIDE FLUSH 10ML SYR IVF SCH ×4 (09:17→20:12)
[2019-02-02] MEDS: LOSARTAN 25MG TABLET PO SCH ×2 (09:18→20:12)
[2019-02-02] MEDS: ACETAMINOPHEN 500 MG TABLET PO PRN (09:27)
[2019-02-02] MEDS: ONDANSETRON 2MG/ML, 2ML IVPush PRN (09:27)
[2019-02-02] MEDS: MAGNESIUM SULFATE 1 GM in SODIUM CHLORIDE 0.9% 50 ML IVPB SCH (11:57)
[2019-02-02] MEDS: PROCHLORPERAZINE 5 MG/ML, 2ML IVPush PRN ×2 (14:06→20:12)
[2019-02-03] MEDS: HYDROcodone/APAP 5/325 TABLET PO PRN ×2 (03:46→23:17)
[2019-02-03 04:39] LABS: MEAN CORPUSCULAR HEMOGLOBIN 30.5 pg (27.0-34.8); MEAN CORPUSCULAR HGB CONC 32.8 g/dL (32.4-35.8); MEAN CORPUSCULAR VOLUME 93.1 fL (80-100); MEAN PLATELET VOLUME 9.7 fL (7.4-10.4); PLATELET COUNT 136 x10^3/uL (130-400); RED BLOOD COUNT 3.51 x10^6/uL (3.82-5.3); RED CELL DISTRIBUTION WIDTH 13.5 % (9.6-15.2)
[2019-02-03 04:40] LABS: ANION GAP 5 mmol/L (5-15); CALCIUM 8.4 mg/dL (8.5-10.1); CHLORIDE 104 mmol/L (98-107); CREATININE 0.76 mg/dL (0.55-1.02)
[2019-02-03 05:49] LABS: BASOPHILS # (AUTO) 0.03 x10^3/uL (0-0.1); BASOPHILS % (AUTO) 0 % (0-1); EOSINOPHILS # (AUTO) 0.02 x10^3/uL (0-0.4); EOSINOPHILS % (AUTO) 0 % (1-7); LYMPHOCYTES # (AUTO) 1.44 x10^3/uL (1-3.4); LYMPHOCYTES % (AUTO) 9 % (22-44); MD SCAN; MONOCYTES # (AUTO) 0.89 x10^3/uL (0.2-0.8); MONOCYTES % (AUTO) 6 % (2-9); NEUTROPHILS # (AUTO) 13.88 x10^3/uL (1.8-6.8); NEUTROPHILS % (AUTO) 85 % (42-75)
[2019-02-03] MEDS: KETOROLAC 30 MG/1 ML IVPush SCH ×3 (07:54→20:02)
[2019-02-03] MEDS: PROCHLORPERAZINE 5 MG/ML, 2ML IVPush PRN (07:55)
[2019-02-03] MEDS: LOSARTAN 25MG TABLET PO SCH ×2 (09:14→20:59)
[2019-02-03] MEDS: DOCUSATE 100 MG CAPSULE PO SCH ×2 (09:14→20:58)
[2019-02-03] MEDS: MUPIROCIN OINT 2%, 22GM NAS SCH ×2 (09:14→20:57)
[2019-02-03] MEDS: ASPIRIN 81 MG TABLET EC PO SCH (09:14)
[2019-02-03] MEDS: POTASSIUM CHLORIDE 20 MEQ TAB.ER.PRT PO SCH ×2 (09:14→18:07)
[2019-02-03] MEDS: FUROSEMIDE 40 MG/4 ML IV SCH (09:15)
[2019-02-03] MEDS: SODIUM CHLORIDE FLUSH 10ML SYR IVF SCH ×2 (09:15)
[2019-02-03] MEDS: ENOXAPARIN 40 MG/0.4 ML SQ SCH (12:34)
[2019-02-03] MEDS: ONDANSETRON 2MG/ML, 2ML IVPush PRN ×2 (12:34→20:02)
[2019-02-03 15:50] VITALS: BP 133/86
[2019-02-03 19:13] VITALS: BP 135/84
[2019-02-04 00:14] VITALS: BP 129/84
[2019-02-04] MEDS: KETOROLAC 30 MG/1 ML IVPush SCH ×4 (01:59→20:36)
[2019-02-04] MEDS ORDERED: CATHFLO-ALTEPLASE 2 MG/2 ML CATHFLUSH ONE (02:30)
[2019-02-04 04:27] VITALS: BP 130/80
[2019-02-04] MEDS: ONDANSETRON 2MG/ML, 2ML IVPush PRN ×3 (05:41→20:35)
[2019-02-04 06:28] LABS: ANION GAP 6 mmol/L (5-15); CALCIUM 8.4 mg/dL (8.5-10.1); CHLORIDE 104 mmol/L (98-107); CREATININE 0.71 mg/dL (0.55-1.02)
[2019-02-04 06:30] LABS: BASOPHILS # (AUTO) 0.03 x10^3/uL (0-0.1); BASOPHILS % (AUTO) 0 % (0-1); EOSINOPHILS # (AUTO) 0.13 x10^3/uL (0-0.4); EOSINOPHILS % (AUTO) 1 % (1-7); LYMPHOCYTES # (AUTO) 1.37 x10^3/uL (1-3.4); LYMPHOCYTES % (AUTO) 13 % (22-44); MD NO; MEAN CORPUSCULAR HEMOGLOBIN 30.6 pg (27.0-34.8); MEAN CORPUSCULAR HGB CONC 32.9 g/dL (32.4-35.8); MEAN CORPUSCULAR VOLUME 92.9 fL (80-100); MEAN PLATELET VOLUME 10.2 fL (7.4-10.4); MONOCYTES # (AUTO) 0.65 x10^3/uL (0.2-0.8); MONOCYTES % (AUTO) 6 % (2-9); NEUTROPHILS # (AUTO) 8.07 x10^3/uL (1.8-6.8); NEUTROPHILS % (AUTO) 79 % (42-75); PLATELET COUNT 136 x10^3/uL (130-400); RED BLOOD COUNT 3.17 x10^6/uL (3.82-5.3); RED CELL DISTRIBUTION WIDTH 13.7 % (9.6-15.2)
[2019-02-04 07:49] VITALS: BP 146/94
[2019-02-04] MEDS: FUROSEMIDE 40 MG/4 ML IV SCH (09:33)
[2019-02-04] MEDS: DOCUSATE 100 MG CAPSULE PO SCH ×2 (09:33→20:35)
[2019-02-04] MEDS: POTASSIUM CHLORIDE 20 MEQ TAB.ER.PRT PO SCH ×2 (09:34→17:32)
[2019-02-04] MEDS: LOSARTAN 25MG TABLET PO SCH ×2 (09:34→20:35)
[2019-02-04] MEDS: ASPIRIN 81 MG TABLET EC PO SCH (09:34)
[2019-02-04] MEDS: MUPIROCIN OINT 2%, 22GM NAS SCH ×2 (09:43→20:36)
[2019-02-04 13:22] VITALS: BP 135/84
[2019-02-04] MEDS: ENOXAPARIN 40 MG/0.4 ML SQ SCH (13:23)
[2019-02-04 19:45] VITALS: BP 149/89
[2019-02-05 00:52] VITALS: BP 136/81
[2019-02-05] MEDS: HYDROcodone/APAP 5/325 TABLET PO PRN (01:02)
[2019-02-05] MEDS: KETOROLAC 30 MG/1 ML IVPush SCH ×4 (03:12→20:47)
[2019-02-05 05:21] LABS: MEAN CORPUSCULAR HEMOGLOBIN 30.8 pg (27.0-34.8); MEAN CORPUSCULAR HGB CONC 33.1 g/dL (32.4-35.8); MEAN CORPUSCULAR VOLUME 93.3 fL (80-100); MEAN PLATELET VOLUME 9.8 fL (7.4-10.4); PLATELET COUNT 174 x10^3/uL (130-400); RED BLOOD COUNT 3.16 x10^6/uL (3.82-5.3); RED CELL DISTRIBUTION WIDTH 13.7 % (9.6-15.2)
[2019-02-05 05:24] LABS: ANION GAP 7 mmol/L (5-15); CALCIUM 8.5 mg/dL (8.5-10.1); CHLORIDE 102 mmol/L (98-107); CREATININE 0.77 mg/dL (0.55-1.02)
[2019-02-05 07:00] VITALS: BP 115/79
[2019-02-05 07:35] LABS: BASOPHILS # (AUTO) 0.03 x10^3/uL (0-0.1); BASOPHILS % (AUTO) 0 % (0-1); EOSINOPHILS # (AUTO) 0.18 x10^3/uL (0-0.4); EOSINOPHILS % (AUTO) 2 % (1-7); LYMPHOCYTES # (AUTO) 1.63 x10^3/uL (1-3.4); LYMPHOCYTES % (AUTO) 16 % (22-44); MD NO; MONOCYTES # (AUTO) 0.65 x10^3/uL (0.2-0.8); MONOCYTES % (AUTO) 6 % (2-9); NEUTROPHILS # (AUTO) 7.75 x10^3/uL (1.8-6.8); NEUTROPHILS % (AUTO) 76 % (42-75)
[2019-02-05] MEDS: ASPIRIN 81 MG TABLET EC PO SCH (09:05)
[2019-02-05] MEDS: POTASSIUM CHLORIDE 20 MEQ TAB.ER.PRT PO SCH ×2 (09:06→17:33)
[2019-02-05] MEDS: DOCUSATE 100 MG CAPSULE PO SCH (09:06)
[2019-02-05] MEDS: LOSARTAN 25MG TABLET PO SCH ×2 (09:07→20:47)
[2019-02-05] MEDS: FUROSEMIDE 40 MG/4 ML IV SCH (09:07)
[2019-02-05] MEDS ORDERED: WARFARIN BIOPROSTHETIC VALVE PROTOCOL 2-3 XX PRN (09:30)
[2019-02-05 10:30] LABS: INTERNATIONAL NORMALIZED RATIO 1.1 (0.93-1.1); PROTHROMBIN TIME 11.5 Seconds (9.6-11.5)
[2019-02-05] MEDS: ONDANSETRON 2MG/ML, 2ML IVPush PRN ×2 (11:57→20:47)
[2019-02-05 12:18] VITALS: BP 113/77
[2019-02-05] MEDS: ENOXAPARIN 40 MG/0.4 ML SQ SCH (14:16)
[2019-02-05] MEDS ORDERED: WARFARIN 5 MG TABLET PO-COUM SCH (18:00)
[2019-02-05 20:36] VITALS: BP 138/89
[2019-02-06 03:48] VITALS: BP 116/77
[2019-02-06] MEDS: KETOROLAC 30 MG/1 ML IVPush SCH (03:48)
[2019-02-06 04:42] LABS: INTERNATIONAL NORMALIZED RATIO 1.13 (0.93-1.1); PROTHROMBIN TIME 11.8 Seconds (9.6-11.5)
[2019-02-06 04:45] LABS: ANION GAP 7 mmol/L (5-15); CALCIUM 8.7 mg/dL (8.5-10.1); CHLORIDE 101 mmol/L (98-107)
[2019-02-06 04:46] LABS: CREATININE 0.85 mg/dL (0.55-1.02)
[2019-02-06] MEDS: DOCUSATE 100 MG CAPSULE PO SCH (09:00)
[2019-02-06 10:08] VITALS: BP 133/82
[2019-02-06] MEDS: ASPIRIN 81 MG TABLET EC PO SCH (10:10)
[2019-02-06] MEDS: POTASSIUM CHLORIDE 20 MEQ TAB.ER.PRT PO SCH ×2 (10:10→17:18)
[2019-02-06] MEDS: LOSARTAN 25MG TABLET PO SCH ×2 (10:11→21:16)
[2019-02-06] MEDS: FUROSEMIDE 40 MG/4 ML IV SCH (10:11)
[2019-02-06] MEDS: METOPROLOL TARTRATE 25 MG TABLET PO SCH ×2 (10:11→17:18)
[2019-02-06] MEDS: ONDANSETRON 2MG/ML, 2ML IVPush PRN ×2 (10:18→21:48)
[2019-02-06 13:31] VITALS: BP 132/84
[2019-02-06] MEDS: ACETAMINOPHEN 500 MG TABLET PO PRN (15:11)
[2019-02-06] MEDS: ENOXAPARIN 40 MG/0.4 ML SQ SCH (15:11)
[2019-02-06] MEDS ORDERED: WARFARIN 5 MG TABLET PO-COUM ONE (18:00)
[2019-02-06 20:53] VITALS: BP 132/83
[2019-02-07] VITALS: BP 118/81
[2019-02-07] MEDS: HYDROcodone/APAP 5/325 TABLET PO PRN (02:07)
[2019-02-07 05:11] LABS: INTERNATIONAL NORMALIZED RATIO 1.36 (0.93-1.1)
[2019-02-07 05:12] LABS: ANION GAP 4 mmol/L (5-15); CALCIUM 8.5 mg/dL (8.5-10.1); CHLORIDE 104 mmol/L (98-107); CREATININE 0.86 mg/dL (0.55-1.02)
[2019-02-07 05:13] LABS: PROTHROMBIN TIME 14.1 Seconds (9.6-11.5)
[2019-02-07 05:23] VITALS: BP 122/75
[2019-02-07 05:24] LABS: BASOPHILS # (AUTO) 0.03 x10^3/uL (0-0.1); BASOPHILS % (AUTO) 0 % (0-1); EOSINOPHILS # (AUTO) 0.13 x10^3/uL (0-0.4); EOSINOPHILS % (AUTO) 1 % (1-7); LYMPHOCYTES # (AUTO) 1.58 x10^3/uL (1-3.4); LYMPHOCYTES % (AUTO) 17 % (22-44); MD NO; MEAN CORPUSCULAR HEMOGLOBIN 29.9 pg (27.0-34.8); MEAN CORPUSCULAR HGB CONC 32.4 g/dL (32.4-35.8); MEAN CORPUSCULAR VOLUME 92.2 fL (80-100); MONOCYTES # (AUTO) 0.69 x10^3/uL (0.2-0.8); MONOCYTES % (AUTO) 7 % (2-9); NEUTROPHILS # (AUTO) 7.05 x10^3/uL (1.8-6.8); NEUTROPHILS % (AUTO) 74 % (42-75); PLATELET COUNT 213 x10^3/uL (130-400); RED BLOOD COUNT 3.11 x10^6/uL (3.82-5.3); RED CELL DISTRIBUTION WIDTH 13.8 % (9.6-15.2)
[2019-02-07] MEDS: METOPROLOL TARTRATE 25 MG TABLET PO SCH (05:26)
[2019-02-07 06:51] VITALS: BP 128/84
[2019-02-07] MEDS ORDERED: FURO-92 PO (08:19)
[2019-02-07] MEDS ORDERED: POTA20TA6 PO (08:19)
[2019-02-07] MEDS ORDERED: ALPR0.254 PO (08:19)
[2019-02-07] MEDS ORDERED: HYDR-3237 PO (08:19)
[2019-02-07] MEDS ORDERED: WARF-36 PO-COUM (08:19)
[2019-02-07] MEDS ORDERED: METO25TA35 PO (08:19)
[2019-02-07] MEDS ORDERED: ONDA4TAB13 SL (08:19)
[2019-02-07] MEDS ORDERED: ASPI81TA45 PO (08:19)
[2019-02-07] MEDS: DOCUSATE 100 MG CAPSULE PO SCH (09:00)
[2019-02-07] MEDS: FUROSEMIDE 40 MG/4 ML IV SCH (09:00)
[2019-02-07] MEDS: POTASSIUM CHLORIDE 20 MEQ TAB.ER.PRT PO SCH (09:16)
[2019-02-07] MEDS: ASPIRIN 81 MG TABLET EC PO SCH (09:16)
[2019-02-07] MEDS: LOSARTAN 25MG TABLET PO SCH (09:16)
[2019-02-07] MEDS ORDERED: WARFARIN 5 MG TABLET PO-COUM ONE (18:00)
== END 2019-02-07 12:48 | disposition home health service (06) | DRG 219 ==
LOC: 5SO 04:23 → CSU 11:18 → CCU 02-02 16:50 → 5SO 02-03 14:51
PROVIDERS: ADMIT Thoracic Surgery (Cardiothoracic Vascular Surgery); ATTEND Thoracic Surgery (Cardiothoracic Vascular Surgery)
PROC: 02UG0JZ Supplement Mitral Valve with Synthetic Substitute, Open Approach (ICD-10-PCS; 2019-01-31)
PROC: B246ZZ4 Ultrasonography of Right and Left Heart, Transesophageal (ICD-10-PCS; 2019-01-31)
PROC: 02580ZZ Destruction of Conduction Mechanism, Open Approach (ICD-10-PCS; 2019-01-31)
PROC: 5A1221Z Performance of Cardiac Output, Continuous (ICD-10-PCS; 2019-01-31)
PROC: 4A133B3 Monitoring of Arterial Pressure, Pulmonary, Percutaneous Approach (ICD-10-PCS; 2019-01-31)
PROC: 02HV33Z Insertion of Infusion Device into Superior Vena Cava, Percutaneous Approach (ICD-10-PCS; 2019-01-31)
PROC: B548ZZA Ultrasonography of Superior Vena Cava, Guidance (ICD-10-PCS; 2019-01-31)
PROC: 02HP32Z Insertion of Monitoring Device into Pulmonary Trunk, Percutaneous Approach (ICD-10-PCS; 2019-01-31)
PROC: 02L70ZK Occlusion of Left Atrial Appendage, Open Approach (ICD-10-PCS; principal; 2019-01-31 07:30)
DX: I08.1 Rheumatic disorders of both mitral and tricuspid valves (principal); I50.33 Acute on chronic diastolic (congestive) heart failure; J96.00 Acute respiratory failure, unspecified whether with hypoxia or hypercapnia; I44.2 Atrioventricular block, complete; J98.11 Atelectasis; D72.829 Elevated white blood cell count, unspecified; I48.0 Paroxysmal atrial fibrillation; E66.9 Obesity, unspecified; E78.00 Pure hypercholesterolemia, unspecified; E78.5 Hyperlipidemia, unspecified; F41.9 Anxiety disorder, unspecified; I11.0 Hypertensive heart disease with heart failure; I44.7 Left bundle-branch block, unspecified; I51.3 Intracardiac thrombosis, not elsewhere classified; Z79.01 Long term (current) use of anticoagulants; Z88.0 Allergy status to penicillin; Z87.891 Personal history of nicotine dependence; Z91.040 Latex allergy status; Z91.018 Allergy to other foods; Z68.34 Body mass index [BMI] 34.0-34.9, adult
CPT/HCPCS: 36415; 36600; 71045; 71046; 80048; 80053; 81001; 82040; 82330; 82800; 82803; 82810; 82947; 82962; 83036; 83735; 84132; 84295; 85014; 85018; 85025; 85049; 85347; 85610; 85730; 86850; 86870; 86900; 86922; 86923; 87081; 88305; 93005; 93312; 93321; 93325; 93880; 94002; 94660; 94667; G0378; J0697; J1644; J1650; J1815; J1885; J1940; J2250; J2405; J2704; J2720; J2997; J3010; J3370; J3475; J3480; P9045; P9047; C1751; C1760; C1762; J0171; J0282; J0780; J2370; J7050; J7120

== ENCOUNTER 2019-02-20 00:20 | Inpatient (IN) | payer MEDICARE ==
[~2019-02-20] VITALS: Ht 177.8 cm; Wt 104.4 kg
[~2019-02-20 00:20] MED LIST changes: +ALPR0.254 PO; +ASPI81TA45 PO; +HYDR-3237 PO; +ONDA4TAB13 SL; +POTA20TA6 PO; +WARF-36 PO-COUM
--- NOTE | 2019-02-20 00:30 | NUR ---
bib [facility] d/t chest pain, afib rvr hr 120's per [facility] report , pt given asa 324mg by [facility]. monitors applied, siderails up x2, call light within reach
[2019-02-20] MEDS ORDERED: METOPROLOL TARTRATE 25 MG TABLET ONE (00:42)
[2019-02-20 00:50] LABS: BASOPHILS # (AUTO) 0.04 x10^3/uL (0-0.1); BASOPHILS % (AUTO) 0 % (0-1); EOSINOPHILS # (AUTO) 0.13 x10^3/uL (0-0.4); EOSINOPHILS % (AUTO) 1 % (1-7); LYMPHOCYTES # (AUTO) 1.85 x10^3/uL (1-3.4); LYMPHOCYTES % (AUTO) 19 % (22-44); MD NO; MEAN CORPUSCULAR HGB CONC 32.7 g/dL (32.4-35.8); MEAN CORPUSCULAR VOLUME 91.7 fL (80-100); MEAN PLATELET VOLUME 8.7 fL (7.4-10.4); MONOCYTES # (AUTO) 0.47 x10^3/uL (0.2-0.8); MONOCYTES % (AUTO) 5 % (2-9); NEUTROPHILS # (AUTO) 7.22 x10^3/uL (1.8-6.8); NEUTROPHILS % (AUTO) 74 % (42-75); PLATELET COUNT 363 x10^3/uL (130-400); RED BLOOD COUNT 3.87 x10^6/uL (3.82-5.3); RED CELL DISTRIBUTION WIDTH 14.3 % (9.6-15.2)
--- NOTE | 2019-02-20 00:57 | NUR ---
PT MEDICATED PER MAR
[2019-02-20 01:00] LABS: INTERNATIONAL NORMALIZED RATIO 2.61 (0.93-1.1); PROTHROMBIN TIME 26.4 Seconds (9.6-11.5)
[2019-02-20] MEDS ORDERED: METOPROLOL TARTRATE 50 MG TABLET PO ONE (01:00)
[2019-02-20] MEDS ORDERED: METOPROLOL TARTRATE 25 MG TABLET PO ONE (01:00)
[2019-02-20 01:04] LABS: ALBUMIN 3.7 g/dL (3.4-5.0); ANION GAP 10 mmol/L (5-15); CALCIUM 9.1 mg/dL (8.5-10.1); CHLORIDE 106 mmol/L (98-107); CREATININE 1.08 mg/dL (0.55-1.02)
[2019-02-20 01:08] LABS: TROPONIN I < 0.015 ng/mL (0.000-0.045)
[2019-02-20] MEDS ORDERED: ONDANSETRON 2MG/ML, 2ML ONE (01:44)
[2019-02-20] MEDS ORDERED: hydrALAzine 20 MG/ML, 1ML IVPush PRN (02:00)
[2019-02-20] MEDS ORDERED: LABETALOL 5MG/ML, 20ML IVPush PRN (02:00)
[2019-02-20] MEDS ORDERED: ACETAMINOPHEN 325 MG TABLET PO PRN (02:00)
[2019-02-20] MEDS ORDERED: ONDANSETRON ODT 4 MG PO ONE (02:00)
[2019-02-20] MEDS ORDERED: ONDANSETRON 2MG/ML, 2ML IVPush ONE (02:00)
[2019-02-20] MEDS ORDERED: OXYcodone IR 5MG TABLET PO PRN (02:00)
[2019-02-20] MEDS ORDERED: ONDANSETRON 2MG/ML, 2ML IVPush PRN (02:00)
[2019-02-20] MEDS ORDERED: BISACODYL 10 MG SUPP PR PRN (02:00)
[2019-02-20] MEDS ORDERED: morphine SULFATE 10 MG/ML, 1ML IVPush PRN (02:00)
[2019-02-20] MEDS ORDERED: ONDANSETRON ODT 4 MG PO PRN (02:00)
[2019-02-20] MEDS ORDERED: PROMETHAZINE 25 MG/ML, 1ML IM PRN (02:00)
--- NOTE | 2019-02-20 02:03 | NUR ---
PT RESTING ON GURENY, MEDICATED FOR NAUSEA, SEE MAR. FAMILY AT BEDSIDE, MONITORS IN PLACE, DENIES FURTHER NEEDS AT THIS TIME, CALL LIGHT WITHIN REACH. ADMIT MD AT BEDSIDE
[2019-02-20] MEDS ORDERED: HYDROcodone/APAP 5/325 TABLET PO PRN (02:30)
[2019-02-20] MEDS ORDERED: WARFARIN 5 MG TABLET PO-COUM ONE (02:30)
[2019-02-20 02:49] LABS: FREE T4 (FREE THYROXINE) 1.27 ng/dL (0.76-1.46)
[2019-02-20 02:53] VITALS: BP 102/76
[2019-02-20 02:59] LABS: HEMOGLOBIN A1C 5.5 % (4.2-6.3)
[2019-02-20] MEDS: GABAPENTIN 100 MG CAPSULE PO SCH ×4 (03:20→21:07)
[2019-02-20 05:33] LABS: TROPONIN I < 0.015 ng/mL (0.000-0.045)
[2019-02-20] MEDS ORDERED: METOPROLOL TARTRATE 25 MG TABLET PO SCH (06:00)
[2019-02-20 08:40] LABS: TROPONIN I 0.016 ng/mL (0.000-0.045)
[2019-02-20] MEDS: LOSARTAN 25MG TABLET PO SCH (08:47)
[2019-02-20] MEDS: ASPIRIN 81 MG TABLET EC PO SCH (08:47)
[2019-02-20 09:10] LABS: MICROSCOPIC AUTO
[2019-02-20 09:12] LABS: CULTURE INDICATED? YES
[2019-02-20] MEDS: POLYETHYLENE GLYCOL 17 GM PACKET PO PRN (09:17)
[2019-02-20] MEDS: DOCUSATE 100 MG CAPSULE PO PRN (09:17)
[2019-02-20 15:47] VITALS: BP 113/75
[2019-02-20] MEDS: METOPROLOL TARTRATE 25 MG TABLET PO SCH (17:42)
[2019-02-20 21:00] VITALS: BP 125/83
[2019-02-21 03:59] VITALS: BP 109/75
[2019-02-21 05:00] LABS: BASOPHILS # (AUTO) 0.02 x10^3/uL (0-0.1); BASOPHILS % (AUTO) 0 % (0-1); EOSINOPHILS # (AUTO) 0.14 x10^3/uL (0-0.4); EOSINOPHILS % (AUTO) 2 % (1-7); LYMPHOCYTES % (AUTO) 24 % (22-44); MD NO; MEAN CORPUSCULAR HEMOGLOBIN 30.2 pg (27.0-34.8); MEAN CORPUSCULAR HGB CONC 32.3 g/dL (32.4-35.8); MEAN CORPUSCULAR VOLUME 93.4 fL (80-100); MONOCYTES # (AUTO) 0.55 x10^3/uL (0.2-0.8); MONOCYTES % (AUTO) 7 % (2-9); NEUTROPHILS # (AUTO) 5.66 x10^3/uL (1.8-6.8); NEUTROPHILS % (AUTO) 68 % (42-75); PLATELET COUNT 300 x10^3/uL (130-400); RED BLOOD COUNT 3.56 x10^6/uL (3.82-5.3); RED CELL DISTRIBUTION WIDTH 14.4 % (9.6-15.2)
[2019-02-21 05:09] LABS: ALBUMIN 3.2 g/dL (3.4-5.0); ANION GAP 7 mmol/L (5-15); CALCIUM 8.9 mg/dL (8.5-10.1); CHLORIDE 109 mmol/L (98-107)
[2019-02-21 05:11] LABS: INTERNATIONAL NORMALIZED RATIO 2.33 (0.93-1.1); PROTHROMBIN TIME 23.7 Seconds (9.6-11.5)
[2019-02-21 05:12] LABS: ALANINE AMINOTRANSFERASE 27 U/L (12-78); ALKALINE PHOSPHATASE 138 U/L (45-117); BILIRUBIN,TOTAL 0.5 mg/dL (0.2-1.0); CHOLESTEROL, TOTAL 128 mg/dL (140-239); CREATININE 0.74 mg/dL (0.55-1.02); HDL CHOL % 33 % (28-40); HDL CHOLESTEROL (DIRECT) 42 mg/dL (40-60); LDL CHOLESTEROL,CALCULATED 61 mg/dL (54-169); LDL/HDL RATIO 1.5 (0.5-3.0); TOTAL PROTEIN 6.6 g/dL (6.4-8.2); TRIGLYCERIDES 123 mg/dL (50-200); VLDL CHOLESTEROL 25 mg/dL (0-25)
[2019-02-21] MEDS: METOPROLOL TARTRATE 25 MG TABLET PO SCH (05:25)
[2019-02-21] MEDS: ASPIRIN 81 MG TABLET EC PO SCH (08:55)
[2019-02-21] MEDS: POLYETHYLENE GLYCOL 17 GM PACKET PO PRN (08:55)
[2019-02-21] MEDS: GABAPENTIN 100 MG CAPSULE PO SCH (08:55)
[2019-02-21] MEDS: LOSARTAN 25MG TABLET PO SCH (08:55)
[2019-02-21] MEDS: DOCUSATE 100 MG CAPSULE PO PRN (08:55)
[2019-02-21] MEDS ORDERED: METO25TA35 PO (10:28)
[2019-02-21] MEDS ORDERED: POLY17PO5 PO (10:28)
[2019-02-21 11:24] VITALS: BP 113/79
[2019-02-21] MEDS ORDERED: WARFARIN 5 MG TABLET PO-COUM ONE (18:00)
== END 2019-02-21 14:23 | disposition home health service (06) | DRG 309 ==
LOC: ED 01:34 → EDIP 01:40 → 5SO 02:43 → DCLOUNGE 02-21 14:00
PROVIDERS: ADMIT Internal Medicine; ATTEND Internal Medicine
DX: I48.0 Paroxysmal atrial fibrillation (principal); D68.69 Other thrombophilia; Z91.040 Latex allergy status; M54.2 Cervicalgia; E78.5 Hyperlipidemia, unspecified; I11.0 Hypertensive heart disease with heart failure; I25.10 Atherosclerotic heart disease of native coronary artery without angina pectoris; I50.9 Heart failure, unspecified; I34.0 Nonrheumatic mitral (valve) insufficiency; Z87.891 Personal history of nicotine dependence; Z88.0 Allergy status to penicillin; Z91.018 Allergy to other foods
CPT/HCPCS: 36415; 71045; 80048; 80053; 80061; 81001; 82040; 83036; 83735; 83880; 84439; 84443; 84484; 85025; 85610; 87086; 93005; 96374; G0378; J2405

== ENCOUNTER 2019-10-31 13:02 | Outpatient (CLI) | payer MEDICARE ==
[~2019-10-31 13:02] MED LIST changes: -DIGO250T PO; +DIGO250T3 PO; -MAGN400T7 PO; +MAGN400T9 PO; +POLY17PO5 PO
== END 2019-10-31 23:59 | disposition home or self-care (01) ==
LOC: CFH 13:02
PROVIDERS: ATTEND Internal Medicine Cardiovascular Disease
DX: I08.8 Other rheumatic multiple valve diseases (principal)
CPT/HCPCS: 93306

== ENCOUNTER → 2020-05-16 | Outpatient (CLI) | payer MEDICARE | END | disposition home or self-care (01) | LOC: CFH 10:17 | PROVIDERS: ATTEND Internal Medicine Cardiovascular Disease | DX: I08.8 Other rheumatic multiple valve diseases (principal); I11.9 Hypertensive heart disease without heart failure; I42.9 Cardiomyopathy, unspecified | CPT/HCPCS: 93306 ==

== ENCOUNTER → 2020-07-24 | Outpatient (CLI) | payer MEDICARE | END | disposition home or self-care (01) | LOC: CFH 16:33 | PROVIDERS: ATTEND Internal Medicine Cardiovascular Disease | DX: I08.8 Other rheumatic multiple valve diseases (principal); I42.9 Cardiomyopathy, unspecified | CPT/HCPCS: 93308 ==

== ENCOUNTER 2020-09-04 10:00 | Day surgery (SDC) | payer MEDICARE ==
[~2020-09-04] VITALS: Ht 177.8 cm; Wt 99.1 kg
[~2020-09-04 10:00] MED LIST changes: -ASPI-650 PO; +ASPI325T20 PO; -FOLI-17 PO; +FOLI1TAB32 PO
[2020-09-04] MEDS ORDERED: METO-93 PO (10:46)
[2020-09-04] MEDS ORDERED: FURO-92 PO (10:46)
[2020-09-04 10:50] VITALS: BP 141/89
[2020-09-04] MEDS ORDERED: DIPHENHYDRAMINE 50 MG/ML, 1ML IVPush ONE (11:00)
[2020-09-04] MEDS ORDERED: DIPHENHYDRAMINE 50 MG/ML, 1ML ONE (11:03)
[2020-09-04 11:55] LABS: BASOPHILS % (AUTO) 0 % (0-1); EOSINOPHILS % (AUTO) 1 % (1-7); LYMPHOCYTES % (AUTO) 17 % (22-44); MD NO; MEAN CORPUSCULAR HEMOGLOBIN 30.5 pg (27.0-34.8); MEAN CORPUSCULAR HGB CONC 33.1 g/dL (32.4-35.8); MEAN PLATELET VOLUME 9.5 fL (7.4-10.4); MONOCYTES % (AUTO) 6 % (2-9); NEUTROPHILS % (AUTO) 77 % (42-75); PLATELET COUNT 220 x10^3/uL (130-400); RED BLOOD COUNT 4.22 x10^6/uL (3.82-5.3); RED CELL DISTRIBUTION WIDTH 13.1 % (9.6-15.2)
[2020-09-04] MEDS ORDERED: MIDAZOLAM 1 MG/ML, 2ML ONE ×2 (12:01→12:49)
[2020-09-04] MEDS ORDERED: FENTANYL PF 100 MCG/2ML ONE (12:01)
[2020-09-04 12:05] LABS: INTERNATIONAL NORMALIZED RATIO 1.05 (0.93-1.1); PROTHROMBIN TIME 11.2 Seconds (9.6-11.5)
[2020-09-04 12:07] LABS: ANION GAP 5 mmol/L (5-15); CALCIUM 9.2 mg/dL (8.5-10.1); CHLORIDE 111 mmol/L (98-107); CREATININE 0.88 mg/dL (0.55-1.02)
[2020-09-04] MEDS ORDERED: LIDOCAINE 2%, 20ML ONE (12:39)
[2020-09-04] MEDS ORDERED: FURO20TA3 PO (14:33)
[2020-09-04] MEDS ORDERED: POTA10TA PO (14:34)
== END 2020-09-04 15:42 | disposition home or self-care (01) ==
LOC: CACL 10:00
PROVIDERS: ATTEND Internal Medicine Cardiovascular Disease
DX: I36.1 Nonrheumatic tricuspid (valve) insufficiency (principal); I48.0 Paroxysmal atrial fibrillation; I27.9 Pulmonary heart disease, unspecified; I10 Essential (primary) hypertension; E66.3 Overweight; Z68.32 Body mass index [BMI] 32.0-32.9, adult; Z79.82 Long term (current) use of aspirin; Z79.899 Other long term (current) drug therapy; Z88.0 Allergy status to penicillin; Z88.8 Allergy status to other drugs, medicaments and biological substances; Z91.040 Latex allergy status
CPT/HCPCS: 36415; 80048; 82330; 82803; 82947; 83880; 84132; 84295; 85014; 85025; 85610; 93451; 99156; 99157; C1894; J1200; J2250; J3010